=== PATIENT | female | born 1990 | race Caucasian/White ===

== ENCOUNTER 2017-08-24 16:32 | Emergency (ER) | payer BC, OTHER ==
[~2017-08-24] VITALS: Ht 172.7 cm; Wt 62.6 kg
[2017-08-24] MEDS ORDERED: LIDOCAINE 1%, 10ML ONE (19:42)
[2017-08-24] MEDS ORDERED: PROMETHAZINE 25 MG/ML, 1ML ONE (19:45)
[2017-08-24] MEDS ORDERED: DIAZEPAM 5 MG TABLET ONE (19:45)
[2017-08-24] MEDS ORDERED: KETOROLAC 30 MG/1 ML ONE (19:46)
[2017-08-24] MEDS ORDERED: PROMETHAZINE 25 MG/ML, 1ML IM ONE (20:00)
[2017-08-24] MEDS ORDERED: KETOROLAC 30 MG/1 ML IM ONE (20:00)
[2017-08-24] MEDS ORDERED: DIAZEPAM 5 MG TABLET PO ONE (20:00)
[2017-08-24] MEDS ORDERED: LIDOCAINE 1%, 10ML INFIL ONE (20:00)
[2017-08-24 21:03] VITALS: BP 139/74
== END 2017-08-24 21:05 | disposition home or self-care (01) ==
LOC: ED 18:32
DX: G44.52 New daily persistent headache (NDPH) (principal)
CPT/HCPCS: 70450; 99284

== ENCOUNTER → 2018-07-20 | Outpatient (CLI) | payer BC | END | disposition home or self-care (01) | LOC: CFH 13:04 | PROVIDERS: ATTEND Obstetrics & Gynecology | DX: Z02.9 Encounter for administrative examinations, unspecified (principal) ==

== ENCOUNTER 2018-08-12 10:09 | Emergency (ER) | payer BC ==
[~2018-08-12] VITALS: Ht 172.7 cm; Wt 64.6 kg
[2018-08-12 10:12] VITALS: BP 123/80
[2018-08-12 11:38] LABS: BASOPHILS # (AUTO) 0.01 x10^3/uL (0-0.1); BASOPHILS % (AUTO) 0 % (0-1); EOSINOPHILS # (AUTO) 0.05 x10^3/uL (0-0.4); EOSINOPHILS % (AUTO) 1 % (1-7); LYMPHOCYTES # (AUTO) 1.68 x10^3/uL (1-3.4); LYMPHOCYTES % (AUTO) 30 % (22-44); MD NO; MEAN CORPUSCULAR HEMOGLOBIN 29.4 pg (27.0-34.8); MEAN CORPUSCULAR HGB CONC 33.1 g/dL (32.4-35.8); MEAN CORPUSCULAR VOLUME 88.8 fL (80-100); MEAN PLATELET VOLUME 8.3 fL (7.4-10.4); MONOCYTES % (AUTO) 4 % (2-9); NEUTROPHILS # (AUTO) 3.59 x10^3/uL (1.8-6.8); NEUTROPHILS % (AUTO) 65 % (42-75); PLATELET COUNT 264 x10^3/uL (130-400); RED BLOOD COUNT 4.95 x10^6/uL (3.82-5.3); RED CELL DISTRIBUTION WIDTH 13.6 % (9.6-15.2)
[2018-08-12 11:52] LABS: ALANINE AMINOTRANSFERASE 24 U/L (12-78); ALBUMIN 4.4 g/dL (3.4-5.0); ANION GAP 7 mmol/L (5-15); CALCIUM 9.1 mg/dL (8.5-10.1); CHLORIDE 111 mmol/L (98-107); CREATININE 0.95 mg/dL (0.55-1.02)
[2018-08-12 11:55] LABS: ALKALINE PHOSPHATASE 62 U/L (45-117); BILIRUBIN,TOTAL 0.4 mg/dL (0.2-1.0); TOTAL PROTEIN 8.4 g/dL (6.4-8.2)
== END 2018-08-12 12:51 | disposition home or self-care (01) ==
LOC: ED 11:19
DX: M79.661 Pain in right lower leg (principal)
CPT/HCPCS: 36415; 80053; 85025; 99284